=== PATIENT | male | born 1995 | race Caucasian/White ===

== ENCOUNTER 2019-07-06 13:57 | Emergency (ER) | payer BC ==
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
[2019-07-06] MEDS ORDERED: Acetaminophen/oxyCODONE 325-7.5 MG Tab PO ONE (14:37)
--- NOTE | 2019-07-06 14:54 | CRLCR ---
Indication: Injury and pain Technique: Left wrist 3 views Comparison: None Findings/Impression: Bones: Acute nondisplaced fracture present in the distal left radius appears to extend to the articulating surface. Mildly distracted ulnar styloid fracture. No other osseous abnormality. Joint spaces: Unremarkable. Soft tissues: Soft tissue swelling is adjacent to the growth plate. Dictated by Rickey De Los Santos MD @ 07/06/2019 2:51:41 PM Dictated by: Rickey De Los Santos MD @ 07/06/2019 14:51:46 (Electronically Signed)
== END 2019-07-06 15:20 | disposition home or self-care (01) ==
LOC: JP.ED 13:57
DX: S52.502A Unspecified fracture of the lower end of left radius, initial encounter for closed fracture (principal); S52.612A Displaced fracture of left ulna styloid process, initial encounter for closed fracture; Z96.22 Myringotomy tube(s) status; Z98.890 Other specified postprocedural states; V86.52XA Driver of snowmobile injured in nontraffic accident, initial encounter
CPT/HCPCS: 29125; 73110; 99283; A9270